=== PATIENT | female | born 1995 | race Caucasian/White ===

== ENCOUNTER 2020-05-02 15:25 | Emergency (ER) | payer OTHER ==
[~2020-05-02] VITALS: Ht 167.6 cm; Wt 122.7 kg
[2020-05-02 15:26] VITALS: Ht 167.6 cm; Wt 122.7 kg
[2020-05-02] MEDS ORDERED: BAYER CHEWABLE81 MG PO (15:27)
[2020-05-02] MEDS ORDERED: NOVOLIN 70/30 110 ML SC (15:28)
[2020-05-02] MEDS ORDERED: PRENATAL (15:28)
[2020-05-02] MEDS ORDERED: NOVOLOG100 UNIT/1 SC (15:28)
[2020-05-02 16:14] LABS: BASOPHILS 0.4 % (0-2); BILIRUBIN NEGATIVE (NEGATIVE); EOSINOPHILS 3.3 % (0-7); GLUCOSE 50 mg/dL (NEGATIVE); HEMATOCRIT 40.7 % (36.0-48.0); HEMOGLOBIN 13.7 g/dL (12-16); IMMATURE GRANULOCYTES 0.4 % (0-5); KETONE NEGATIVE (NEGATIVE); LYMPHOCYTES 15.5 % (15-50); MCH 29.3 pg (26.0-34.0); MCHC 33.7 g/dL (31.0-37.0); NEUTROPHILS 73.4 % (40-80); NITRITE NEGATIVE (NEGATIVE); PLATELET COUNT 250 10x3/uL (130-400); RBC 4.68 10x6/uL (4.00-5.40); RDW 13.4 % (11.5-14.5); UROBILINOGEN NORMAL (NORMAL); WBC 9.3 10x3/uL (4.8-10.8)
[2020-05-02 16:26] LABS: CALC OSMOLALITY 269 mosm/kg (275-300); CALCIUM 8.6 mg/dL (8.5-10.1); CHLORIDE - SERUM 105 mmol/L (98-107); CREATININE - SERUM 0.6 mg/dL (0.6-1.3); GLUCOSE 138 mg/dL (74-106); POTASSIUM - SERUM 3.6 mmol/L (3.5-5.1); SODIUM 135 mmol/L (136-145); UREA NITROGEN 8 mg/dL (7-18); eGFR NON AFRICAN AMERICAN > 90 mL/min (90-120)
[2020-05-02 16:27] LABS: APTT 28.9 SECONDS (22.8-39.4); INR 0.96 (0.85-1.17); PROTIME 12.7 SECONDS (11.6-15.0)
[2020-05-02 16:28] LABS: D-DIMER-QUANTITATIVE 0.56 ug/mLFEU (0.20-0.54)
[2020-05-02 16:40] LABS: ALBUMIN 2.7 g/dL (3.4-5.0); ALKALINE PHOSPHATASE 117 U/L (30-120); ALT (SGPT) 20 U/L (10-68); AMYLASE - SERUM 37 U/L (25-115); BILIRUBIN - TOTAL 0.55 mg/dL (0.2-1.3); CKMB 0.7 U/L (0.0-3.6); CREATINE KINASE 26 UL (21-215); MAGNESIUM - SERUM 1.7 mg/dL (1.8-2.4); PROTEIN - SERUM 6.8 g/dL (6.4-8.2); TROPONIN-I < 0.017 ng/mL (0.000-0.060)
[2020-05-02 16:43] LABS: LIPASE 46 U/L (73-393)
--- NOTE | 2020-05-02 17:31 | NUR ---
TO ER TO PERFORM MONITORING PER REQUEST OF DR BARILLAS. 24 YR OLD G 3 P1 A 26+3 IN ER FOR EVALUATION OF CHEST PAIN. + FM. DENIES CONTRACTIONS. MONITORING STARTED AT 1640. HAND HELD US FOR STRIP. BASELINE 135, AVERAGE VARIABILITY. ACCELS TO 150-160'S. FETUS ACTIVE. REPORT CALLED TO DR BARILLAS. ALSO NOTIFIED DR BARILLAS THAT ER MD REQUESTED HE CALL ER AFTER THIS PHONE CALL. HE VERBALIZED UNDERSTANDING. MONITOR STRIP ON L&D TO BE SENT TO MEDICAL RECORDS.
[2020-05-02 17:49] VITALS: BP 130/72
== END 2020-05-02 17:49 | disposition home or self-care (01) ==
LOC: D.ER 15:25
PROVIDERS: Family Medicine
DX: O24.912 Unspecified diabetes mellitus in pregnancy, second trimester (principal); Z3A.27 27 weeks gestation of pregnancy; R07.9 Chest pain, unspecified; Z79.4 Long term (current) use of insulin

== ENCOUNTER 2021-04-25 16:40 | Emergency (ER) | payer OTHER ==
[~2021-04-25] VITALS: Ht 167.6 cm; Wt 110.5 kg
[~2021-04-25 16:40] MED LIST: BASAGLAR K100 UNIT/1 SC; BAYER CHEWABLE81 MG PO; NORMODYNE / TR100 MG PO; NOVOLIN 70/30 110 ML SC; NOVOLOG100 UNIT/1 SC; PRENATAL
[2021-04-25 16:55] VITALS: BP 135/81; Ht 167.6 cm; Wt 110.5 kg
[2021-04-25] MEDS ORDERED: IBUPROFEN800 MG PO (17:07)
[2021-04-25] MEDS ORDERED: ORAL ANALGESIC9 GM TOPICAL (17:07)
[2021-04-25] MEDS ORDERED: CEPHALEXIN500 M1 PO (17:07)
[2021-04-25] MEDS ORDERED: CYCLOBENZAPRINE10 MG PO (17:07)
[2021-04-25] MEDS ORDERED: ACETAMINOPHEN500 M1 PO (17:07)
== END 2021-04-25 18:00 | disposition home or self-care (01) ==
LOC: D.ER 16:40
DX: K02.9 Dental caries, unspecified (principal); K04.7 Periapical abscess without sinus; K08.89 Other specified disorders of teeth and supporting structures; E11.9 Type 2 diabetes mellitus without complications; Z79.4 Long term (current) use of insulin

== ENCOUNTER 2021-04-28 01:13 | Inpatient (IN) | payer OTHER ==
[2021-04-28] VITALS (18 sets, daily range): BP systolic 122–157; BP diastolic 53–89; Ht 167.6 cm; Wt 109.7 kg
[~2021-04-28] VITALS: Ht 167.6 cm; Wt 109.7 kg
[~2021-04-28 01:13] MED LIST changes: +ACETAMINOPHEN500 M1 PO; +CEPHALEXIN500 M1 PO; +CYCLOBENZAPRINE10 MG PO; +IBUPROFEN800 MG PO; +ORAL ANALGESIC9 GM TOPICAL
[2021-04-28 01:48] LABS: BASOPHILS 0.7 % (0-2); EOSINOPHILS 0.4 % (0-7); HEMATOCRIT 49.6 % (36.0-48.0); HEMOGLOBIN 16.7 g/dL (12-16); MCH 29.2 pg (26.0-34.0); MCHC 33.8 g/dL (31.0-37.0); MCV 86.6 fL (80.0-100.0); MEAN PLATELET VOLUME 7.2 fL (7.4-10.4); MONOCYTES 8.1 % (2-11); NEUTROPHILS 67.8 % (40-80); RBC 5.73 10x6/uL (4.00-5.40); RDW 13.4 % (11.5-14.5)
[2021-04-28 01:49] LABS: PLATELET COUNT 589 10x3/uL (130-400)
[2021-04-28 02:01] LABS: ALBUMIN 3.8 g/dL (3.4-5.0); ANION GAP 29.5 mmol/L (8-16); BILIRUBIN - TOTAL 0.49 mg/dL (0.2-1.3); CALCIUM 9.5 mg/dL (8.5-10.1); MAGNESIUM - SERUM 1.7 mg/dL (1.8-2.4); PROTEIN - SERUM 8.7 g/dL (6.4-8.2)
[2021-04-28 02:16] LABS: BILIRUBIN NEGATIVE (NEGATIVE); KETONE LARGE mg/dL (NEGATIVE); NITRITE NEGATIVE (NEGATIVE); UROBILINOGEN NORMAL mg/dL (< 2)
[2021-04-28 02:18] LABS: BACTERIA FEW HPF (NONE SEEN); SQUAMOUS EPITHELIAL 0-5 HPF (0-4); WHITE CELLS - URINE 0-5 HPF (0-4)
[2021-04-28 02:20] LABS: CARBON DIOXIDE 9.5 mmol/L (21.0-32.0)
[2021-04-28 12:10] LABS: ALBUMIN 3.2 g/dL (3.4-5.0); ALKALINE PHOSPHATASE 115 U/L (30-120); BILIRUBIN - TOTAL 0.43 mg/dL (0.2-1.3); CALCIUM 9.5 mg/dL (8.5-10.1); CHLORIDE - SERUM 112 mmol/L (98-107); CREATININE - SERUM 0.9 mg/dL (0.6-1.3); FERRITIN 255 ng/mL (3-244); MAGNESIUM - SERUM 1.7 mg/dL (1.8-2.4); PHOSPHOROUS 1.8 mg/dL (2.5-4.9); PROTEIN - SERUM 7.3 g/dL (6.4-8.2); SODIUM 142 mmol/L (136-145); UREA NITROGEN 12 mg/dL (7-18); eGFR NON AFRICAN AMERICAN 82 mL/min (90-120)
[2021-04-28 12:11] LABS: ALT (SGPT) 11 U/L (10-68); CALC OSMOLALITY 283 mosm/kg (275-300); CARBON DIOXIDE 14.2 mmol/L (21.0-32.0); GLUCOSE 124 mg/dL (74-106); POTASSIUM - SERUM 3.3 mmol/L (3.5-5.1)
[2021-04-28 12:56] LABS: BASOPHILS 0.7 % (0-2); EOSINOPHILS 2.1 % (0-7); HEMATOCRIT 43.6 % (36.0-48.0); HEMOGLOBIN 14.7 g/dL (12-16); LYMPHOCYTES 23.9 % (15-50); MCH 28.8 pg (26.0-34.0); MCHC 33.7 g/dL (31.0-37.0); MCV 85.4 fL (80.0-100.0); MEAN PLATELET VOLUME 7.2 fL (7.4-10.4); MONOCYTES 11.7 % (2-11); NEUTROPHILS 61.6 % (40-80); PLATELET COUNT 489 10x3/uL (130-400); RBC 5.11 10x6/uL (4.00-5.40); RDW 13.5 % (11.5-14.5)
--- NOTE | 2021-04-28 15:44 | NUR ---
NEW IV STARTED 18 NATA RIGHT ARM WITH ONE STCK. PATIENT UP TO BEDSIDE TO VOID WITH NO PROBLEMS AND REMAINS ON INSULIN DRIP AT THIS TIME.
[2021-04-28 16:05] LABS: CALC OSMOLALITY 283 mosm/kg (275-300); CALCIUM 9.3 mg/dL (8.5-10.1); CARBON DIOXIDE 16.8 mmol/L (21.0-32.0); CHLORIDE - SERUM 111 mmol/L (98-107); CREATININE - SERUM 0.8 mg/dL (0.6-1.3); GLUCOSE 140 mg/dL (74-106); POTASSIUM - SERUM 3.1 mmol/L (3.5-5.1); SODIUM 141 mmol/L (136-145); UREA NITROGEN 14 mg/dL (7-18); eGFR NON AFRICAN AMERICAN > 90 mL/min (90-120)
--- NOTE | 2021-04-28 19:17 | NUR ---
RECEIVED BEDSIDE REPORT. ROUNDING COMPLETE. PATIENT IS ALERT AND ORIENTED, RESTIN COMFORTABLY IN BED. RESPIRATIONS ARE EVEN AND UNLABORED. NO S/S OF DISTRESS. NO C/O PAIN. NEEDS MET. CALL LIGHT WITHIN REACH. WILL CPOC.
[2021-04-28 20:04] LABS: CALC OSMOLALITY 283 mosm/kg (275-300); CALCIUM 9.2 mg/dL (8.5-10.1); CARBON DIOXIDE 18.9 mmol/L (21.0-32.0); CHLORIDE - SERUM 111 mmol/L (98-107); CREATININE - SERUM 0.9 mg/dL (0.6-1.3); GLUCOSE 126 mg/dL (74-106); SODIUM 141 mmol/L (136-145); UREA NITROGEN 15 mg/dL (7-18); eGFR NON AFRICAN AMERICAN 82 mL/min (90-120)
[2021-04-28 20:05] LABS: POTASSIUM - SERUM 2.9 mmol/L (3.5-5.1)
[2021-04-29] VITALS (13 sets, daily range): BP systolic 133–165; BP diastolic 78–97
[2021-04-29 01:21] LABS: CALC OSMOLALITY 281 mosm/kg (275-300); CALCIUM 9.1 mg/dL (8.5-10.1); CARBON DIOXIDE 20.7 mmol/L (21.0-32.0); CHLORIDE - SERUM 111 mmol/L (98-107); CREATININE - SERUM 0.8 mg/dL (0.6-1.3); GLUCOSE 137 mg/dL (74-106); SODIUM 140 mmol/L (136-145); UREA NITROGEN 14 mg/dL (7-18); eGFR NON AFRICAN AMERICAN > 90 mL/min (90-120)
[2021-04-29 01:23] LABS: POTASSIUM - SERUM 2.8 mmol/L (3.5-5.1)
--- NOTE | 2021-04-29 02:19 | NUR ---
NOTIFIED KARTIK ECHEVARRIA APN. PATIENT ANION GAP 11.10. ORDERS GIVEN TO DECREASE FLUIDS TO 75 ML/HR.
[2021-04-29 04:47] LABS: BASOPHILS 0.6 % (0-2); EOSINOPHILS 5.5 % (0-7); HEMOGLOBIN 14.6 g/dL (12-16); LYMPHOCYTES 23.4 % (15-50); MCH 28.4 pg (26.0-34.0); MCHC 34.1 g/dL (31.0-37.0); MCV 83.5 fL (80.0-100.0); MEAN PLATELET VOLUME 7.1 fL (7.4-10.4); MONOCYTES 7.4 % (2-11); NEUTROPHILS 63.1 % (40-80); PLATELET COUNT 445 10x3/uL (130-400); RBC 5.15 10x6/uL (4.00-5.40); RDW 13.5 % (11.5-14.5); WBC 9.8 10x3/uL (4.8-10.8)
[2021-04-29 04:59] LABS: ALBUMIN 3.1 g/dL (3.4-5.0); ALKALINE PHOSPHATASE 110 U/L (30-120); BILIRUBIN - TOTAL 0.42 mg/dL (0.2-1.3); CALC OSMOLALITY 280 mosm/kg (275-300); CALCIUM 9.4 mg/dL (8.5-10.1); CARBON DIOXIDE 18.8 mmol/L (21.0-32.0); CHLORIDE - SERUM 110 mmol/L (98-107); CREATININE - SERUM 0.7 mg/dL (0.6-1.3); GLUCOSE 121 mg/dL (74-106); MAGNESIUM - SERUM 1.6 mg/dL (1.8-2.4); PHOSPHOROUS 2.1 mg/dL (2.5-4.9); PROTEIN - SERUM 7.2 g/dL (6.4-8.2); SODIUM 140 mmol/L (136-145); UREA NITROGEN 14 mg/dL (7-18); eGFR NON AFRICAN AMERICAN > 90 mL/min (90-120)
[2021-04-29 05:12] LABS: ALT (SGPT) 14 U/L (10-68)
--- NOTE | 2021-04-29 09:13 | NUR ---
Nutrition diabetic diet education note: Pt has been DMT1 since 16 years old. Pt has been following her insulin regimen as prescribed without any issues until tooth abscess, infection. Pt counts CHO and follows a sliding scale before meals. Provided pt CHO counting handout. RDN will be available if needed.
--- NOTE | 2021-04-29 09:30 | NUR ---
ANSWERED CALL LIGHT. PT REPORTS ABD PAIN 7/10 AND HEADACHE /10. PRIMARY NURSE NOTIFIED AND I ADMINISTERED PT PRN MORPHINE AND TYLENOL FOR HEADACHE.
--- NOTE | 2021-04-29 17:45 | NUR ---
REPORT CALLED TO RANJEET RUELAS AND PATIENT TO MOVE TO ROOM 2238 AND INSULIN DRIP TURNED OFF AROUND 1300 TODAY.
--- NOTE | 2021-04-29 18:54 | NUR ---
RECEIVED TO ROOM AND ORIENTED TO ROOM. ALERT AND ORIENTED AND DENIES ANY PAIN OR DISCOMFORT
--- NOTE | 2021-04-29 19:30 | NUR ---
PT IN BED, AAO X 4, RESP EVEN AND UNLABORED, NO DISTRESS NOTED, CL IN REACH, SR UP X 2.
[2021-04-30 04:00] VITALS: BP 123/72
--- NOTE | 2021-04-30 04:55 | NUR ---
I have reviewed this patient and I concur with the Shift Assessment completed by the Licensed Practical Nurse today this shift.
[2021-04-30 06:54] LABS: BASOPHILS 1.2 % (0-2); EOSINOPHILS 5.2 % (0-7); HEMATOCRIT 40.2 % (36.0-48.0); HEMOGLOBIN 13.7 g/dL (12-16); MCH 28.9 pg (26.0-34.0); MCHC 34.1 g/dL (31.0-37.0); MCV 84.7 fL (80.0-100.0); MEAN PLATELET VOLUME 7.4 fL (7.4-10.4); MONOCYTES 11.4 % (2-11); NEUTROPHILS 46.2 % (40-80); PLATELET COUNT 394 10x3/uL (130-400); RBC 4.74 10x6/uL (4.00-5.40); RDW 13.3 % (11.5-14.5)
[2021-04-30 07:05] LABS: ALBUMIN 3.1 g/dL (3.4-5.0); ALKALINE PHOSPHATASE 110 U/L (30-120); BILIRUBIN - TOTAL 0.71 mg/dL (0.2-1.3); CALCIUM 9.2 mg/dL (8.5-10.1); CHLORIDE - SERUM 107 mmol/L (98-107); CREATININE - SERUM 0.7 mg/dL (0.6-1.3); MAGNESIUM - SERUM 1.7 mg/dL (1.8-2.4); POTASSIUM - SERUM 3.2 mmol/L (3.5-5.1); PROTEIN - SERUM 7.1 g/dL (6.4-8.2); SODIUM 140 mmol/L (136-145); UREA NITROGEN 14 mg/dL (7-18); eGFR NON AFRICAN AMERICAN > 90 mL/min (90-120)
[2021-04-30 07:06] LABS: ALT (SGPT) 10 U/L (10-68); CALC OSMOLALITY 288 mosm/kg (275-300); GLUCOSE 261 mg/dL (74-106)
[2021-04-30 09:51] VITALS: BP 130/85
[2021-04-30 12:51] VITALS: BP 144/81
[2021-04-30] MEDS ORDERED: FLORAJEN DIGES1 EACH PO (14:49)
[2021-04-30] MEDS ORDERED: NICODERM CQ1 EAC3 TRANSDERM (14:49)
--- NOTE | 2021-04-30 16:22 | NUR ---
IV DISCONTINUED AND VERBALIZED UNDERSTANDING OF DISCHARGE INSTRUCTIONS. STABLE AT TIME OF DISCHARGE.
== END 2021-04-30 16:25 | disposition home or self-care (01) | DRG 639 ==
LOC: D.ER 01:13 → D.MS 02:29 → D.ICU 02:29 → D.MS 04-29 18:40
PROVIDERS: Family Medicine; ADMIT Emergency Medicine; ATTEND Emergency Medicine
DX: E10.10 Type 1 diabetes mellitus with ketoacidosis without coma (principal); Z79.4 Long term (current) use of insulin; K04.7 Periapical abscess without sinus; D64.9 Anemia, unspecified; F17.200 Nicotine dependence, unspecified, uncomplicated; F41.8 Other specified anxiety disorders